=== PATIENT | female | born 1965 | race Caucasian/White ===

== ENCOUNTER 2017-02-01 19:36 | Emergency (ER) | payer SELFPAY ==
[~2017-02-01] VITALS: Ht 167.6 cm; Wt 85.7 kg
[~2017-02-01 19:36] MED LIST: ROBAXIN750 MG PO; celeXA PO
[2017-02-01 19:45] VITALS: BP 135/89
[2017-02-01 20:13] LABS: AMPHETAMINE NEGATIVE (500 ng/mL); BARBITURATES NEGATIVE (200 ng/mL); BENZODIAZEPINES NEGATIVE (150 ng/mL); COCAINE PRESUMPTIVE POSITIVE (150 ng/mL); METHADONE NEGATIVE (200 ng/mL); METHAMPHETAMINE NEGATIVE (500 ng/mL); OPIATES (MORPHINE) PRESUMPTIVE POSITIVE (100 ng/mL); OXYCODONE NEGATIVE (100 ng/mL); PHENCYCLIDINE NEGATIVE (25 ng/mL); PROPOXYPHENE NEGATIVE (300 ng/mL); THC CANNABINOIDS NEGATIVE (50 ng/mL); TRICYCLIC ANTIDEPRESSANTS NEGATIVE (300 ng/mL)
[2017-02-01 20:14] LABS: ADD MEDTOX COMMENT Y; INTERNAL CONTROLS VALID? YES
[2017-02-01 20:26] LABS: MCH 29.1 PG (29.0-34.0); MCV 88.2 FL (83-99); MEAN PLAT.VOLUME 10.4 uM^3 (9.5-12.4); PLATELET COUNT 276 K/uL (156-360); RBC DIS.WIDTH-CV 12.7 % (11.8-14.6); RBC DIS.WIDTH-SD 41.2 % (39-53); RED BLOOD COUNT 5.67 M/uL (3.80-5.20); WHITE BLOOD COUNT 11.1 K/uL (4.1-10.2)
[2017-02-01 20:34] LABS: CHLORIDE 104 mEq/L (99-109); POTASSIUM 4.3 mEq/L (3.7-5.4); SODIUM 138 mEq/L (136-147)
[2017-02-01 20:36] LABS: GLUCOSE 112 mg/dL (70-99)
[2017-02-01 20:37] LABS: ANION GAP 12 MEQ/L (2-14)
[2017-02-01 20:39] LABS: SERUM ETHYL ALCOHOL < 10 mg/dL
[2017-02-01 20:40] LABS: GFR ESTIMATE (CALCULATED) > 59 mL/min/
[2017-02-01 20:41] LABS: UREA NITROGEN (BUN) 6 mg/dL (9-23)
== END 2017-02-01 22:27 | disposition left against medical advice (07) ==
LOC: EME 19:36
DX: F32.9 Major depressive disorder, single episode, unspecified (principal); Z53.21 Procedure and treatment not carried out due to patient leaving prior to being seen by health care provider; R45.851 Suicidal ideations
CPT/HCPCS: 80048; 84999; 85027; 99281; 99283; G0480

== ENCOUNTER 2017-10-17 17:12 | Emergency (ER) | payer OTHER ==
[~2017-10-17] VITALS: Ht 167.6 cm; Wt 82.3 kg
[2017-10-17 18:49] VITALS: BP 142/84
== END 2017-10-17 19:12 | disposition home or self-care (01) ==
LOC: EME 17:12
DX: Z76.0 Encounter for issue of repeat prescription (principal); F31.9 Bipolar disorder, unspecified; I10 Essential (primary) hypertension; F17.200 Nicotine dependence, unspecified, uncomplicated
CPT/HCPCS: 99281; 99283

== ENCOUNTER 2017-12-23 16:23 | Emergency (ER) | payer OTHER ==
[~2017-12-23] VITALS: Ht 167.6 cm; Wt 88.8 kg
[2017-12-23] MEDS ORDERED: BACTRIM,SEPT1 TABLET PO ×2 (17:43→18:13)
[2017-12-23 18:09] VITALS: BP 123/76
== END 2017-12-23 18:18 | disposition home or self-care (01) ==
LOC: EME 16:23
PROC: 0H9CXZZ Drainage of Left Upper Arm Skin, External Approach (ICD-10-PCS; principal; 2017-12-23)
DX: L02.412 Cutaneous abscess of left axilla (principal); F17.200 Nicotine dependence, unspecified, uncomplicated
CPT/HCPCS: 99281; 99284

== ENCOUNTER 2018-04-19 13:45 | Emergency (ER) | payer OTHER ==
[~2018-04-19] VITALS: Ht 167.6 cm; Wt 95.3 kg
[~2018-04-19 13:45] MED LIST changes: +BACTRIM,SEPT1 TABLET PO
[2018-04-19 15:19] LABS: BASOPHIL (%) 0.7 % (0-1); BASOPHIL COUNT 0.1 K/uL (0-0.1); EOSINOPHIL (%) 2.3 % (0-5); EOSINOPHIL COUNT 0.2 K/uL (0-0.3); HEMATOCRIT 41.4 % (36.0-46.0); HEMOGLOBIN 14.1 G/DL (11.9-15.5); IMMATURE GRANULOCYTE (%) 0.3 % (0.0-0.7); LYMPHOCYTE (%) 43.1 % (15-42); LYMPHOCYTE COUNT 3.8 K/uL (1.0-2.8); MCH 30.7 PG (29.0-34.0); MCHC 34.1 G/DL (30.0-36.0); MCV 90.2 FL (83-99); MONOCYTE (%) 5.9 % (3-12); MONOCYTE COUNT 0.5 K/uL (0-0.8); NEUTROPHIL (%) 47.7 % (45-76); NEUTROPHIL COUNT 4.2 K/uL (1.8-6.4); PLATELET COUNT 267 K/uL (156-360); RBC DIS.WIDTH-CV 12.1 % (11.8-14.6); RBC DIS.WIDTH-SD 39.7 % (39-53); RED BLOOD COUNT 4.59 M/uL (3.80-5.20); WHITE BLOOD COUNT 8.7 K/uL (4.1-10.2)
[2018-04-19 15:40] LABS: CHLORIDE 105 mEq/L (99-109); POTASSIUM 4.5 mEq/L (3.7-5.4); SODIUM 141 mEq/L (136-147)
[2018-04-19 15:42] LABS: GLUCOSE 85 mg/dL (70-99)
[2018-04-19 15:46] LABS: CREATININE 0.8 mg/dL (0.6-1.3); GFR ESTIMATE (CALCULATED) > 59 mL/min/
[2018-04-19 15:47] LABS: UREA NITROGEN (BUN) 9 mg/dL (9-23)
[2018-04-19 18:15] VITALS: BP 152/76
== END 2018-04-19 18:17 | disposition home or self-care (01) ==
LOC: RME 13:45 → EME 13:45 → RME 18:17
DX: M79.604 Pain in right leg (principal); R22.41 Localized swelling, mass and lump, right lower limb; F17.200 Nicotine dependence, unspecified, uncomplicated; F32.9 Major depressive disorder, single episode, unspecified; Z86.19 Personal history of other infectious and parasitic diseases
CPT/HCPCS: 73590; 80048; 83605; 85025; 85610; 85730; 93971; 99281; 99283